=== PATIENT | female | born 1995 ===

== ENCOUNTER 2017-08-11 00:02 | Inpatient (IN) | payer MEDICAID ==
[2017-08-11] MEDS ORDERED: Sodium Chloride 0.9% 10 ML Syringe FLUSH PRN ×2 (02:22→02:23)
[2017-08-11] MEDS ORDERED: Ampicillin 2 GM in Sodium Chloride 0.9% 100 ML IV ONE ×2 (02:23→03:00)
--- NOTE | 2017-08-11 02:23 | PCM.LDHP ---
L&D History of Present Illness - General Date of Service: 08/11/17 Admit Problem/Dx: Patient Status Order with Admit Dx/Problem 08/11/17 00:53 Patient Status [ADT] Routine Admission Diagnosis/Problem Admission Diagnosis/Problem Source of Information: Patient History Limitations: Reports: No Limitations - History of Present Illness Introduction:: 21 y/o CLEMENTE 08/25/2017 [id number] [id number] presented to L&D c/o complaint of approximately half a cup of bloody discharge at noon and gush of approximately a half a cup to cup of fluid at 1600 hrs. GBS positive. Patient having contractions every 3-9 minutes. Cervix at 0-15 hours is 4 cm dilated 100% effaced soft mid position Vertex 0 station category 1 heart rates. Blood type A- elevated screen negative on 01/29/17 hemoglobin hematocrit 12.5/37.1 platelets 388,000 rubella immune serology nonreactive mixed imer on urine culture, negative hepatitis B surface antigen, negative HIV. Negative Chlamydia and gonorrhea probe. On 06/05/17 hemoglobin hematocrit 11.4/34.0 platelets 315,001 hour OB glucose screen apparently abnormal but 3 hour glucose tolerance test obtained with fasting of 76, 1 hour 150, two-hour 128, 3 hour 77 within normal limits. Group B strep positive as noted above. Patient will be placed in labor and delivery for an plan delivery. Fluid is clear. Location, : Reports: Abdomen Quality: Reports: Ache, Burning, Dull, Pressure Improves with: Reports: None Worsens with: Reports: None Associated Symptoms: Reports: N - Related Data Allergies/Adverse Reactions: Allergies Allergy/AdvReac Type Severity Reaction Status Date / Time No Known Allergies Allergy Verified 08/11/17 00:53 Social & Family History - Family History Cardiac: Reports: Hypertension Neurological: Reports: Other (See Below) (Father developed epilepsy at age 2.) Psychiatric: Reports: Depression (Paternal grandmother apparently had depression. Patient has history of posttraumatic stress disorder) Endocrine/Metabolic: Reports: Diabetes, type II (Father, paternal grandfather Terminal grandmother) Immunologic: Reports: Other (See Below) (Maternal grandmother has lupus) H&P Review of Systems - Review of Systems: Review Of Systems: See Below General: Reports: No Symptoms HEENT: Reports: No Symptoms Pulmonary: Reports: No Symptoms Cardiovascular: Reports: No Symptoms Gastrointestinal: Reports: No Symptoms Genitourinary: Reports: No Symptoms Musculoskeletal: Reports: No Symptoms Skin: Reports: No Symptoms Psychiatric: Reports: No Symptoms Neurological: Reports: No Symptoms Hematologic/Lymphatic: Reports: No Symptoms Immunologic: Reports: No Symptoms L&D Exam - Exam Exam: See Below - Vital Signs Vital Signs: Last Vital Signs Temp 98.0 F 08/11/17 00:38 Pulse 85 08/11/17 00:38 Resp 18 08/11/17 00:38 BP 119/72 08/11/17 00:38 Pulse Ox Weight: 181 lb - OB Specific Fundal Height In cm: 36 Contraction Duration (sec): 60 Contraction Frequency (min): 3 Contraction Intensity: Moderate Movement: Active Heart Tones: Present Heart Tones per Min: 130 Heart Rate (FHR) Variability: Moderate (6-25 bmp) Presentation: Vertex - Henderson Score Henderson Score Cervix Position: Midposition Henderson Score Consistency: Soft Henderson Score Effacement: >80% Henderson Score Dilation: 3-4 cm Henderson Score 's Station: -1 ,0 Henderson Score Total: 10 - Exam General: Alert, Oriented HEENT: Conjunctiva Clear, Mucosa Moist & [place] Neck: Supple, Trachea Midline Lungs: Clear to Auscultation, Normal Respiratory Effort Cardiovascular: Regular Rate, Regular Rhythm GI/Abdominal Exam: Normal Bowel Sounds, Soft, Non-Tender, No Organomegaly, No Distention, No Abnormal Bruit, No Mass, Pelvis Stable Genitourinary: Normal external exam, Normal bimanual exam, Normal speculum exam Back Exam: Normal Inspection, Full Range of Motion Extremities: Normal Inspection, Normal Range of Motion, Non-Tender, No Pedal Edema, Normal Capillary Refill Skin: Warm, Dry, Intact Neurological: Reflexes Equal Bilateral DTR: 2+: Bicep (L), Bicep (R), Patella (L), Patella (R) Psychiatric: Alert, Normal Affect, Normal Mood - Patient Data Lab Results Last 24 hrs: Laboratory Results - last 24 hr 08/11/17 Range/Units 00:50 Membrane Rupture Positive H - Problem List (1) 38 weeks gestation of SNOMED Code(s): 26746557 ICD Code: Z3A.38 - 38 WEEKS GESTATION OF Status: Acute Current Visit: Yes (2) GBS carrier SNOMED Code(s): 7218188781913 ICD Code: Z22.330 - CARRIER OF GROUP B STREPTOCOCCUS Status: Acute Current Visit: Yes Problem List Initiated/Reviewed/Updated: No Orders Last 24hrs: Active Orders 24 hr Category Date Time Status Patient Status [ADT] Routine ADT 08/11/17 00:53 Active Bedrest Bathroom Privileges [RC] ASDIRECTED Care 08/11/17 00:53 Active Non Stress Test [RC] PER UNIT ROUTINE Care 08/11/17 00:53 Active Vaginal Exam [RC] PRN Care 08/11/17 00:53 Active Vital Signs [RC] PER UNIT ROUTINE Care 08/11/17 00:53 Active Resuscitation Status Routine Resus Stat 08/11/17 00:53 Ordered Assessment/Plan Comment:: Plan labor and delivery.
[2017-08-11] MEDS ORDERED: Pneumococcal Polyvalent-23 Vaccine 0.5 ML SDV IM ONE ×2 (02:28→14:53)
[2017-08-11] MEDS ORDERED: Ampicillin 1 GM in Sodium Chloride 0.9% 100 ML IV SCH (02:30)
[2017-08-11] MEDS ORDERED: Lactated Ringers 1,000 ML IV SCH (02:30)
--- NOTE | 2017-08-11 03:01 | PCM.PREANE ---
Preanesthetic Assessment - Procedure Proposed Procedure: PHIL - Anesthesia/Transfusion/Family Hx Anesthesia History: Prior Anesthesia Without Reaction Family History of Anesthesia Reaction: No Transfusion History: No Prior Transfusion(s) Intubation History: Unknown - Review of Systems General: No Symptoms Pulmonary: No Symptoms Cardiovascular: No Symptoms Gastrointestinal: No Symptoms Neurological: No Symptoms Other: Reports: None - Physical Assessment NPO Status Date: 08/11/17 NPO Status Time: 00:15 Respiratory Rate: 18 Vital Signs: Last Vital Signs Temp 36.7 C 08/11/17 00:38 Pulse 85 08/11/17 00:38 Resp 18 08/11/17 00:38 BP 119/72 08/11/17 00:38 Pulse Ox Height: 1.57 m Weight: 82.1 kg ASA Class: 2 Mental Status: Alert & Oriented x3 Airway Class: Mallampati = 1 Dentition: Reports: Normal Dentition Thyro-Mental Finger Breadths: 3 Mouth Opening Finger Breadths: 3 ROM/Head Extension: Full Lungs: Clear to Auscultation, Normal Respiratory Effort Cardiovascular: Regular Rate, Regular Rhythm - Lab Values: Laboratory Last Values WBC 13.96 K/mm3 (3.98-10.04) H 08/11/17 02:35 RBC 4.14 M/mm3 (3.98-5.22) 08/11/17 02:35 Hgb 12.2 gm/L (11.2-15.7) 08/11/17 02:35 Hct 36.2 % (34.1-44.9) 08/11/17 02:35 MCV 87.4 fl (79.4-94.8) 08/11/17 02:35 MCH 29.5 pg (25.6-32.2) 08/11/17 02:35 MCHC 33.7 g/dl (32.2-35.5) 08/11/17 02:35 RDW Std Deviation 44.6 fL (36.4-46.3) 08/11/17 02:35 Plt Count 248 K/mm3 (182-369) 08/11/17 02:35 MPV 7.8 fl (9.4-12.3) L 08/11/17 02:35 Neut % (Auto) 68.8 % (34.0-71.1) 08/11/17 02:35 Lymph % (Auto) 22.2 % (19.3-51.7) 08/11/17 02:35 [place] % (Auto) 6.8 % (4.7-12.5) 08/11/17 02:35 Eos % (Auto) 0.9 (0.7-5.8) 08/11/17 02:35 Baso % (Auto) 0.1 % (0.1-1.2) 08/11/17 02:35 Neut # (Auto) 9.60 K/mm3 (1.56-6.13) H 08/11/17 02:35 Lymph # (Auto) 3.10 K/mm3 (1.18-3.74) 08/11/17 02:35 [place] # (Auto) 0.95 K/mm3 (0.24-0.36) H 08/11/17 02:35 Eos # (Auto) 0.12 K/mm3 (0.04-0.36) 08/11/17 02:35 Baso # (Auto) 0.02 K/mm3 (0.01-0.08) 08/11/17 02:35 Membrane Rupture Positive H 08/11/17 00:50 - Allergies Allergies/Adverse Reactions: Allergies Allergy/AdvReac Type Severity Reaction Status Date / Time No Known Allergies Allergy Verified 08/11/17 00:53 - Blood Blood Available: No Product(s) Available: None - Anesthesia Plan Pre-Op Medication Ordered: None - Acknowledgements Anesthesia Type Planned: Epidural Pt an Appropriate Candidate for the Planned Anesthesia: Yes Alternatives and Risks of Anesthesia Discussed w Pt/Guardian: Yes Pt/Guardian Understands and Agrees with Anesthesia Plan: Yes PreAnesthesia Questionnaire - SUBSTANCE USE Smoking Status *Q: Current Every Day Smoker (0.5ppd for 7 years) Tobacco Use Within Last Twelve Months: Cigarettes Second Hand Smoke Exposure: No Recreational Drug Use History: No - HOME MEDS Home Medications: Home Meds Cyclobenzaprine [Flexeril] 08/11/17 [History] Vits #93/Iron Fum/FA [ Formula Tablet] 08/11/17 [History] - CURRENT (IN HOUSE) MEDS Current Meds: Current Medications Ampicillin Sodium 2 gm/ Sodium (Chloride) 100 mls @ 200 mls/hr IV ONETIME ONE Stop: 08/11/17 02:52 Last Admin: 08/11/17 02:37 Dose: 200 mls/hr Ampicillin Sodium 1 gm/ Sodium (Chloride) 100 mls @ 200 mls/hr IV Q4H KT Lactated Ringer's (Ringers, Lactated) 1,000 mls @ 100 mls/hr IV ASDIRECTED KT Oxytocin 20 unit/ Lactated (Ringer's) 1,002 mls @ 6.01 mls/hr IV TITRATE KT; 2 MUNITS/MIN PRN Reason: Protocol Sodium Chloride (Saline Flush) 10 ml FLUSH ASDIRECTED PRN PRN Reason: Keep Vein Open Sodium Chloride (Saline Flush) 10 ml FLUSH ASDIRECTED PRN PRN Reason: Keep Vein Open Discontinued Medications Lactated Ringer's (Ringers, Lactated) 1,000 mls @ 100 mls/hr IV ASDIRECTED [facility] Pneumococcal Polyvalent Vaccine (Pneumovax 23) 0.5 ml IM .ONCE ONE Stop: 08/11/17 02:29
[2017-08-11] MEDS ORDERED: ePHEDrine 50 MG/ML SDV IVPUSH PRN (03:05)
[2017-08-11] MEDS ORDERED: fentaNYL 100 MCG/2 ML SDV EPIDUR PRN (03:05)
[2017-08-11] MEDS ORDERED: diphenhydrAMINE 50 MG/ML SDV IVPUSH PRN (03:05)
[2017-08-11] MEDS ORDERED: Ondansetron 4 MG/2 ML SDV IVPUSH PRN (03:05)
[2017-08-11] MEDS ORDERED: Bupivacaine/fentaNYL/NS 100 ML Bag EPIDUR SCH (03:15)
[2017-08-11] MEDS: Lactated Ringers 1,000 ML IV SCH ×3 (04:16→05:10)
[2017-08-11] MEDS: Ampicillin 1 GM in Sodium Chloride 0.9% 100 ML IV SCH ×2 (06:29→14:52)
--- NOTE | 2017-08-11 10:24 | PCM.SN ---
- Free Text/Narrative Note: Complete, plus 2 station.Cat I FHR.
[2017-08-11] MEDS ORDERED: Lidocaine 1% 50 ML MDV ONE (11:06)
--- NOTE | 2017-08-11 11:26 | PCM.DEL ---
L & D Note - General Info Date of Service: 08/11/17 Mother's Due Date: 08/25/17 - Delivery Note Labor: Spontaneous, Augmented by Oxytocin Delivery Outcome: Livebirth (Female liveborn Sunday08[birth year]11[birth year]17 at 1100 hrs. right occiput anterior under epidural anesthesia over midline episiotomy without laceration weight 2840 grams/6 pounds 4.2 ounces. Apgars 8/9) Delivery Method: Spontaneous Vaginal Delivery-Single Infant Delivery Mode: Spontaneous Presentation: Right Occiput Anterior (DOROTHY) Nuchal Cord: None Prep: Povidone-Iodine (Betadine Anesthesia Type: Epidural Amniotic Fluid Description: Clear Episiotomy Type: Midline Laceration: None Suture type: Other (Monocryl and was to) Suture size: 3-0 Placenta: Intact, Spontaneous (Velamentous insertion of the cord) Cord: 3 Vessels Estimated Blood Loss: 250 Resuscitation Needed: Yes : Suctioned, Bulb Syringe, Stimulated, Warmed, [place] Used, Warmer Used Provider: Ross [place] Score 1 min: 8 Score 5 min: 9 - Patient Data Vitals - Most Recent: Last Vital Signs Temp 98.0 F 08/11/17 00:38 Pulse 85 08/11/17 00:38 Resp 18 08/11/17 03:06 BP 119/72 08/11/17 00:38 Pulse Ox Weight - Most Recent: 181 lb I&O - Last 24 Hours: Intake & Output 08/10/17 08/11/17 08/11/17 22:59 06:59 14:59 Intake Total 2200 Balance 2200 Lab Results Last 24 Hours: Laboratory Results - last 24 hr 08/11/17 08/11/17 08/11/17 Range/Units 00:50 02:35 02:35 WBC 13.96 H (3.98-10.04) K/mm3 RBC 4.14 (3.98-5.22) M/mm3 Hgb 12.2 (11.2-15.7) gm/L Hct 36.2 (34.1-44.9) % MCV 87.4 (79.4-94.8) fl MCH 29.5 (25.6-32.2) pg MCHC 33.7 (32.2-35.5) g/dl RDW Std Deviation 44.6 (36.4-46.3) fL Plt Count 248 (182-369) K/mm3 MPV 7.8 L (9.4-12.3) fl Neut % (Auto) 68.8 (34.0-71.1) % Lymph % (Auto) 22.2 (19.3-51.7) % [place] % (Auto) 6.8 (4.7-12.5) % Eos % (Auto) 0.9 (0.7-5.8) Baso % (Auto) 0.1 (0.1-1.2) % Neut # (Auto) 9.60 H (1.56-6.13) K/mm3 Lymph # (Auto) 3.10 (1.18-3.74) K/mm3 [place] # (Auto) 0.95 H (0.24-0.36) K/mm3 Eos # (Auto) 0.12 (0.04-0.36) K/mm3 Baso # (Auto) 0.02 (0.01-0.08) K/mm3 Manual Slide Review Abnormal smear Membrane Rupture Positive H Blood Type A NEGATIVE Gel Antibody Screen Negative Med Orders - Current: Current Medications Diphenhydramine HCl (Benadryl) 25 mg IVPUSH Q6H PRN PRN Reason: Pruritis Ephedrine Sulfate (Ephedrine Sulfate) 5 mg IVPUSH ASDIRECTED PRN PRN Reason: Hypotension Fentanyl (Sublimaze) 100 mcg EPIDUR Q3H PRN PRN Reason: Pain Last Admin: 08/11/17 04:41 Dose: 100 mcg Fentanyl/Bupivacaine HCl (Fentanyl/Bupivacaine/Ns 2 Mcg-0.125% 100 Ml) 100 ml EPIDUR ASDIRECTED KT Last Admin: 08/11/17 04:42 Dose: 100 ml Ampicillin Sodium 1 gm/ Sodium (Chloride) 100 mls @ 200 mls/hr IV Q4H KT Last Admin: 08/11/17 06:29 Dose: 200 mls/hr Lactated Ringer's (Ringers, Lactated) 1,000 mls @ 100 mls/hr IV ASDIRECTED KT Last Admin: 08/11/17 05:10 Dose: 100 mls/hr Oxytocin 20 unit/ Lactated (Ringer's) 1,002 mls @ 6.01 mls/hr IV TITRATE KT; 2 MUNITS/MIN PRN Reason: Protocol Ondansetron HCl (Zofran) 4 mg IVPUSH ONETIME PRN PRN Reason: Nausea/Vomiting Sodium Chloride (Saline Flush) 10 ml FLUSH ASDIRECTED PRN PRN Reason: Keep Vein Open Sodium Chloride (Saline Flush) 10 ml FLUSH ASDIRECTED PRN PRN Reason: Keep Vein Open Discontinued Medications Ampicillin Sodium 2 gm/ Sodium (Chloride) 100 mls @ 200 mls/hr IV ONETIME ONE Stop: 08/11/17 02:52 Last Admin: 08/11/17 02:37 Dose: 200 mls/hr Lactated Ringer's (Ringers, Lactated) 1,000 mls @ 100 mls/hr IV ASDIRECTED KT Lidocaine HCl (Xylocaine 1%) Confirm Administered Dose 50 ml .ROUTE .STK-MED ONE Stop: 08/11/17 11:07 Pneumococcal Polyvalent Vaccine (Pneumovax 23) 0.5 ml IM .ONCE ONE Stop: 08/11/17 02:29 - Problem List & Annotations (1) 38 weeks gestation of SNOMED Code(s): 09863897 Code(s): Z3A.38 - 38 WEEKS GESTATION OF Status: Acute Current Visit: Yes (2) GBS carrier SNOMED Code(s): 0059217402160 Code(s): Z22.330 - CARRIER OF GROUP B STREPTOCOCCUS Status: Acute Current Visit: Yes (3) Encounter for full-term uncomplicated delivery SNOMED Code(s): 83631962 Code(s): O80 - ENCOUNTER FOR FULL-TERM UNCOMPLICATED DELIVERY Status: Acute Current Visit: Yes (4) Velamentous insertion of umbilical cord SNOMED Code(s): 80560896 Code(s): O43.129 - VELAMENTOUS INSERTION OF UMBILICAL CORD, UNSP TRIMESTER Status: Acute Current Visit: Yes Qualifiers: Trimester: third trimester Qualified Code(s): O43.123 - Velamentous insertion of umbilical cord, third trimester - Problem List Review Problem List Initiated/Reviewed/Updated: No - My Orders Last 24 Hours: My Active Orders 08/11/17 00:53 Vaginal Exam [RC] PRN Vital Signs [RC] PER UNIT ROUTINE Resuscitation Status Routine 08/11/17 02:22 Communication Order [RC] ASDIRECTED Notify Provider [RC] PFP Notify Provider [RC] PRN Peripheral IV Care [RC] . DIRECTED Urinary Catheter Assessment [RC] ASDIRECTED Sodium Chloride 0.9% [Saline Flush] 10 ml FLUSH ASDIRECTED PRN 08/11/17 02:23 Patient Status [ADT] Routine Activity as Tolerated [RC] PFP Communication Order [RC] ASDIRECTED Heart Tones [RC] ASDIRECTED Notify Provider [RC] PFP Notify Provider [RC] PRN Peripheral IV Care [RC] . DIRECTED Sodium Chloride 0.9% [Saline Flush] 10 ml FLUSH ASDIRECTED PRN Electronic Heart Tones Ext w TOCO [WOMSER] Routine Electronic Heart Tones Internal [WOMSER] Per Unit Routine Peripheral IV Insertion Adult [OM.PC] Routine 08/11/17 02:24 Pump Management, Intrathecal [RC] ASDIRECTED 08/11/17 02:30 Lactated Ringers [Ringers, Lactated] 1,000 ml IV ASDIRECTED Oxytocin [Pitocin] 20 unit Lactated Ringers [Ringers, Lactated] 1,000 ml IV TITRATE 08/11/17 07:00 Ampicillin 1 gm Sodium Chloride 0.9% [Normal Saline] 100 ml IV Q4H 08/11/17 Breakfast Clear Liquid Diet [DIET] - Plan Plan:: Plan labor and delivery.
[2017-08-11] MEDS ORDERED: Witch Hazel Medicated Pads 100/Jar TOP PRN (12:27)
[2017-08-11] MEDS ORDERED: Benzocaine/Menthol 20%-0.5% Spray 56 GM Canister TOP PRN (12:27)
[2017-08-11] MEDS ORDERED: Lanolin 100% Cream 7 GM Tube TOP PRN (12:27)
[2017-08-11] MEDS ORDERED: Acetaminophen 325 MG Tab PO PRN (12:27)
[2017-08-11] MEDS ORDERED: Ibuprofen 600 MG Tab PO PRN (12:27)
[2017-08-11] MEDS ORDERED: Docusate Sodium 100 MG Cap PO PRN (12:27)
--- NOTE | 2017-08-11 17:46 | PCM48HPAN ---
Post Anesthesia Note - EVALUATION WITHIN 48HRS OF ANESTHETIC Vital Signs in Normal Range: Yes Patient Participated in Evaluation: Yes Respiratory Function Stable: Yes Airway Patent: Yes Cardiovascular Function Stable: Yes Hydration Status Stable: Yes Pain Control Satisfactory: Yes Nausea and Vomiting Control Satisfactory: Yes Mental Status Recovered: Yes Pulse Rate: 73 Resp Rate: 17 Temperature: 36.7 C Blood Pressure: 99/54 - COMMENTS/OBSERVATIONS Free Text/Narrative:: No anesthesia complications indicated
[2017-08-11] MEDS ORDERED: Bupivacaine 0.25% 10 ML SDV ONE (22:22)
--- NOTE | 2017-08-12 10:30 | PCM.DCSUM1 ---
Discharge Summary - Hospital Course Free Text/Narrative:: [facility] LIVE L/D Delivery Note Patient Name: RENO PENA Date of : 89 Patient Status: Inpatient Attending Provider: Ross Houston Date: 08/11/17 11:21 Initialization Date: 08/11/17 11:21 L & D Note - General Info Date of Service: 08/11/17 Mother's Due Date: 08/25/17 - Delivery Note Labor: Spontaneous, Augmented by Oxytocin Delivery Outcome: Livebirth (Female liveborn Sunday08/11/17 at 1100 hrs. right occiput anterior under epidural anesthesia over midline episiotomy without laceration weight 2840 grams/6 pounds 4.2 ounces. Apgars 8/9) Delivery Method: Spontaneous Vaginal Delivery-Single Delivery Mode: Spontaneous Presentation: Right Occiput Anterior (DOROTHY) Nuchal Cord: None Prep: Povidone-Iodine (Betadine Anesthesia Type: Epidural Amniotic Fluid Description: Clear Episiotomy Type: Midline Laceration: None Suture type: Other (Monocryl and was to) Suture size: 3-0 Placenta: Intact, Spontaneous (Velamentous insertion of the cord) Cord: 3 Vessels Estimated Blood Loss: 250 Resuscitation Needed: Yes Jeffers: Suctioned, Bulb Syringe, Stimulated, Warmed, [place] Used, Warmer Used Provider: Ross Houston Score 1 min: 8 Score 5 min: 9 - Patient Data Vitals - Most Recent: Last Vital Signs Temp 98.0 F 08/11/17 00:38 Pulse 85 08/11/17 00:38 Resp 18 08/11/17 03:06 BP 119/72 08/11/17 00:38 Pulse Ox Weight - Most Recent: 181 lb I&O - Last 24 Hours: Intake & Output 08/10/17 08/11/17 08/11/17 22:59 06:59 14:59 Intake Total 2200 Balance 2200 Lab Results Last 24 Hours: Laboratory Results - last 24 hr 08/11/17 08/11/17 08/11/17 Range/Units 00:50 02:35 02:35 WBC 13.96 H (3.98-10.04) K/mm3 RBC 4.14 (3.98-5.22) M/mm3 Hgb 12.2 (11.2-15.7) gm/L Hct 36.2 (34.1-44.9) % MCV 87.4 (79.4-94.8) fl MCH 29.5 (25.6-32.2) pg MCHC 33.7 (32.2-35.5) g/dl RDW Std Deviation 44.6 (36.4-46.3) fL Plt Count 248 (182-369) K/mm3 MPV 7.8 L (9.4-12.3) fl Neut % (Auto) 68.8 (34.0-71.1) % Lymph % (Auto) 22.2 (19.3-51.7) % Coos % (Auto) 6.8 (4.7-12.5) % Eos % (Auto) 0.9 (0.7-5.8) Baso % (Auto) 0.1 (0.1-1.2) % Neut # (Auto) 9.60 H (1.56-6.13) K/mm3 Lymph # (Auto) 3.10 (1.18-3.74) K/mm3 Coos # (Auto) 0.95 H (0.24-0.36) K/mm3 Eos # (Auto) 0.12 (0.04-0.36) K/mm3 Baso # (Auto) 0.02 (0.01-0.08) K/mm3 Manual Slide Review Abnormal smear Membrane Rupture Positive H Blood Type A NEGATIVE Gel Antibody Screen Negative Med Orders - Current: Current Medications Diphenhydramine HCl (Benadryl) 25 mg IVPUSH Q6H PRN PRN Reason: Pruritis Ephedrine Sulfate (Ephedrine Sulfate) 5 mg IVPUSH ASDIRECTED PRN PRN Reason: Hypotension Fentanyl (Sublimaze) 100 mcg EPIDUR Q3H PRN PRN Reason: Pain Last Admin: 08/11/17 04:41 Dose: 100 mcg Fentanyl/Bupivacaine HCl (Fentanyl/Bupivacaine/Ns 2 Mcg-0.125% 100 Ml) 100 ml EPIDUR ASDIRECTED KT Last Admin: 08/11/17 04:42 Dose: 100 ml Ampicillin Sodium 1 gm/ Sodium (Chloride) 100 mls @ 200 mls/hr IV Q4H KT Last Admin: 08/11/17 06:29 Dose: 200 mls/hr Lactated Ringer's (Ringers, Lactated) 1,000 mls @ 100 mls/hr IV ASDIRECTED KT Last Admin: 08/11/17 05:10 Dose: 100 mls/hr Oxytocin 20 unit/ Lactated (Ringer's) 1,002 mls @ 6.01 mls/hr IV TITRATE KT; 2 MUNITS/MIN PRN Reason: Protocol Ondansetron HCl (Zofran) 4 mg IVPUSH ONETIME PRN PRN Reason: Nausea/Vomiting Sodium Chloride (Saline Flush) 10 ml FLUSH ASDIRECTED PRN PRN Reason: Keep Vein Open Sodium Chloride (Saline Flush) 10 ml FLUSH ASDIRECTED PRN PRN Reason: Keep Vein Open Discontinued Medications Ampicillin Sodium 2 gm/ Sodium (Chloride) 100 mls @ 200 mls/hr IV ONETIME ONE Stop: 08/11/17 02:52 Last Admin: 08/11/17 02:37 Dose: 200 mls/hr Lactated Ringer's (Ringers, Lactated) 1,000 mls @ 100 mls/hr IV ASDIRECTED [facility] Lidocaine HCl (Xylocaine 1%) Confirm Administered Dose 50 ml .ROUTE .STK-MED ONE Stop: 08/11/17 11:07 Pneumococcal Polyvalent Vaccine (Pneumovax 23) 0.5 ml IM .ONCE ONE Stop: 08/11/17 02:29 - Problem List & Annotations (1) 38 weeks gestation of SNOMED Code(s): 24069417 Code(s): Z3A.38 - 38 WEEKS GESTATION OF Status: Acute Current Visit: Yes (2) GBS carrier SNOMED Code(s): 6421710696137 Code(s): Z22.330 - CARRIER OF GROUP B STREPTOCOCCUS Status: Acute Current Visit: Yes (3) Encounter for full-term uncomplicated delivery SNOMED Code(s): 13029915 Code(s): O80 - ENCOUNTER FOR FULL-TERM UNCOMPLICATED DELIVERY Status: Acute Current Visit: Yes (4) Velamentous insertion of umbilical cord SNOMED Code(s): 56669851 Code(s): O43.129 - VELAMENTOUS INSERTION OF UMBILICAL CORD, UNSP TRIMESTER Status: Acute Current Visit: Yes Qualifiers: Trimester: third trimester Qualified Code(s): O43.123 - Velamentous insertion of umbilical cord, third trimester - Problem List Review Problem List Initiated/Reviewed/Updated: No - My Orders Last 24 Hours: My Active Orders 08/11/17 00:53 Vaginal Exam [RC] PRN Vital Signs [RC] PER UNIT ROUTINE Resuscitation Status Routine 08/11/17 02:22 Communication Order [RC] ASDIRECTED Notify Provider [RC] PFP Notify Provider [RC] PRN Peripheral IV Care [RC] . DIRECTED Urinary Catheter Assessment [RC] ASDIRECTED Sodium Chloride 0.9% [Saline Flush] 10 ml FLUSH ASDIRECTED PRN 08/11/17 02:23 Patient Status [ADT] Routine Activity as Tolerated [RC] PFP Communication Order [RC] ASDIRECTED Heart Tones [RC] ASDIRECTED Notify Provider [RC] PFP Notify Provider [RC] PRN Peripheral IV Care [RC] . DIRECTED Sodium Chloride 0.9% [Saline Flush] 10 ml FLUSH ASDIRECTED PRN Electronic Heart Tones Ext w TOCO [WOMSER] Routine Electronic Heart Tones Internal [WOMSER] Per Unit Routine Peripheral IV Insertion Adult [OM.PC] Routine 08/11/17 02:24 Pump Management, Intrathecal [RC] ASDIRECTED 08/11/17 02:30 Lactated Ringers [Ringers, Lactated] 1,000 ml IV ASDIRECTED Oxytocin [Pitocin] 20 unit Lactated Ringers [Ringers, Lactated] 1,000 ml IV TITRATE 08/11/17 07:00 Ampicillin 1 gm Sodium Chloride 0.9% [Normal Saline] 100 ml IV Q4H 08/11/17 Breakfast Clear Liquid Diet [DIET] - Plan Plan:: Plan labor and delivery. HPI Initial Comments: [facility] LIVE L/D Delivery Note Patient Name: RENO PENA Date of : 89 Patient Status: Inpatient Attending Provider: Ross Houston Date: 08/11/17 11:21 Initialization Date: 08/11/17 11:21 L & D Note - General Info Date of Service: 08/11/17 Mother's Due Date: 08/25/17 - Delivery Note Labor: Spontaneous, Augmented by Oxytocin Delivery Outcome: Livebirth (Female liveborn Sunday08/11/17 at 1100 hrs. right occiput anterior under epidural anesthesia over midline episiotomy without laceration weight 2840 grams/6 pounds 4.2 ounces. Apgars 8/9) Infant Delivery Method: Spontaneous Vaginal Delivery-Single Delivery Mode: Spontaneous Presentation: Right Occiput Anterior (DOROTHY) Nuchal Cord: None Prep: Povidone-Iodine (Betadine Anesthesia Type: Epidural Amniotic Fluid Description: Clear Episiotomy Type: Midline Laceration: None Suture type: Other (Monocryl and was to) Suture size: 3-0 Placenta: Intact, Spontaneous (Velamentous insertion of the cord) Cord: 3 Vessels Estimated Blood Loss: 250 Resuscitation Needed: Yes Jeffers: Suctioned, Bulb Syringe, Stimulated, Warmed, [place] Used, Warmer Used Provider: Ross Houston Score 1 min: 8 Score 5 min: 9 - Patient Data Vitals - Most Recent: Last Vital Signs Temp 98.0 F 08/11/17 00:38 Pulse 85 08/11/17 00:38 Resp 18 08/11/17 03:06 BP 119/72 08/11/17 00:38 Pulse Ox Weight - Most Recent: 181 lb I&O - Last 24 Hours: Intake & Output 08/10/17 08/11/17 08/11/17 22:59 06:59 14:59 Intake Total 2200 Balance 2200 Lab Results Last 24 Hours: Laboratory Results - last 24 hr 08/11/17 08/11/17 08/11/17 Range/Units 00:50 02:35 02:35 WBC 13.96 H (3.98-10.04) K/mm3 RBC 4.14 (3.98-5.22) M/mm3 Hgb 12.2 (11.2-15.7) gm/L Hct 36.2 (34.1-44.9) % MCV 87.4 (79.4-94.8) fl MCH 29.5 (25.6-32.2) pg MCHC 33.7 (32.2-35.5) g/dl RDW Std Deviation 44.6 (36.4-46.3) fL Plt Count 248 (182-369) K/mm3 MPV 7.8 L (9.4-12.3) fl Neut % (Auto) 68.8 (34.0-71.1) % Lymph % (Auto) 22.2 (19.3-51.7) % Coos % (Auto) 6.8 (4.7-12.5) % Eos % (Auto) 0.9 (0.7-5.8) Baso % (Auto) 0.1 (0.1-1.2) % Neut # (Auto) 9.60 H (1.56-6.13) K/mm3 Lymph # (Auto) 3.10 (1.18-3.74) K/mm3 Coos # (Auto) 0.95 H (0.24-0.36) K/mm3 Eos # (Auto) 0.12 (0.04-0.36) K/mm3 Baso # (Auto) 0.02 (0.01-0.08) K/mm3 Manual Slide Review Abnormal smear Membrane Rupture Positive H Blood Type A NEGATIVE Gel Antibody Screen Negative Med Orders - Current: Current Medications Diphenhydramine HCl (Benadryl) 25 mg IVPUSH Q6H PRN PRN Reason: Pruritis Ephedrine Sulfate (Ephedrine Sulfate) 5 mg IVPUSH ASDIRECTED PRN PRN Reason: Hypotension Fentanyl (Sublimaze) 100 mcg EPIDUR Q3H PRN PRN Reason: Pain Last Admin: 08/11/17 04:41 Dose: 100 mcg Fentanyl/Bupivacaine HCl (Fentanyl/Bupivacaine/Ns 2 Mcg-0.125% 100 Ml) 100 ml EPIDUR ASDIRECTED KT Last Admin: 08/11/17 04:42 Dose: 100 ml Ampicillin Sodium 1 gm/ Sodium (Chloride) 100 mls @ 200 mls/hr IV Q4H KT Last Admin: 08/11/17 06:29 Dose: 200 mls/hr Lactated Ringer's (Ringers, Lactated) 1,000 mls @ 100 mls/hr IV ASDIRECTED KT Last Admin: 08/11/17 05:10 Dose: 100 mls/hr Oxytocin 20 unit/ Lactated (Ringer's) 1,002 mls @ 6.01 mls/hr IV TITRATE KT; 2 MUNITS/MIN PRN Reason: Protocol Ondansetron HCl (Zofran) 4 mg IVPUSH ONETIME PRN PRN Reason: Nausea/Vomiting Sodium Chloride (Saline Flush) 10 ml FLUSH ASDIRECTED PRN PRN Reason: Keep Vein Open Sodium Chloride (Saline Flush) 10 ml FLUSH ASDIRECTED PRN PRN Reason: Keep Vein Open Discontinued Medications Ampicillin Sodium 2 gm/ Sodium (Chloride) 100 mls @ 200 mls/hr IV ONETIME ONE Stop: 08/11/17 02:52 Last Admin: 08/11/17 02:37 Dose: 200 mls/hr Lactated Ringer's (Ringers, Lactated) 1,000 mls @ 100 mls/hr IV ASDIRECTED KT Lidocaine HCl (Xylocaine 1%) Confirm Administered Dose 50 ml .ROUTE .STK-MED ONE Stop: 08/11/17 11:07 Pneumococcal Polyvalent Vaccine (Pneumovax 23) 0.5 ml IM .ONCE ONE Stop: 08/11/17 02:29 - Problem List & Annotations (1) 38 weeks gestation of SNOMED Code(s): 30785066 Code(s): Z3A.38 - 38 WEEKS GESTATION OF Status: Acute Current Visit: Yes (2) GBS carrier SNOMED Code(s): 4861088148949 Code(s): Z22.330 - CARRIER OF GROUP B STREPTOCOCCUS Status: Acute Current Visit: Yes (3) Encounter for full-term uncomplicated delivery SNOMED Code(s): 72669076 Code(s): O80 - ENCOUNTER FOR FULL-TERM UNCOMPLICATED DELIVERY Status: Acute Current Visit: Yes (4) Velamentous insertion of umbilical cord SNOMED Code(s): 23892499 Code(s): O43.129 - VELAMENTOUS INSERTION OF UMBILICAL CORD, UNSP TRIMESTER Status: Acute Current Visit: Yes Qualifiers: Trimester: third trimester Qualified Code(s): O43.123 - Velamentous insertion of umbilical cord, third trimester - Problem List Review Problem List Initiated/Reviewed/Updated: No - My Orders Last 24 Hours: My Active Orders 08/11/17 00:53 Vaginal Exam [RC] PRN Vital Signs [RC] PER UNIT ROUTINE Resuscitation Status Routine 08/11/17 02:22 Communication Order [RC] ASDIRECTED Notify Provider [RC] PFP Notify Provider [RC] PRN Peripheral IV Care [RC] . DIRECTED Urinary Catheter Assessment [RC] ASDIRECTED Sodium Chloride 0.9% [Saline Flush] 10 ml FLUSH ASDIRECTED PRN 08/11/17 02:23 Patient Status [ADT] Routine Activity as Tolerated [RC] PFP Communication Order [RC] ASDIRECTED Heart Tones [RC] ASDIRECTED Notify Provider [RC] PFP Notify Provider [RC] PRN Peripheral IV Care [RC] . DIRECTED Sodium Chloride 0.9% [Saline Flush] 10 ml FLUSH ASDIRECTED PRN Electronic Heart Tones Ext w TOCO [WOMSER] Routine Electronic Heart Tones Internal [WOMSER] Per Unit Routine Peripheral IV Insertion Adult [OM.PC] Routine 08/11/17 02:24 Pump Management, Intrathecal [RC] ASDIRECTED 08/11/17 02:30 Lactated Ringers [Ringers, Lactated] 1,000 ml IV ASDIRECTED Oxytocin [Pitocin] 20 unit Lactated Ringers [Ringers, Lactated] 1,000 ml IV TITRATE 08/11/17 07:00 Ampicillin 1 gm Sodium Chloride 0.9% [Normal Saline] 100 ml IV Q4H 08/11/17 Breakfast Clear Liquid Diet [DIET] - Plan Plan:: Plan labor and delivery. Brief History: [facility] LIVE . L/D Delivery Note. Patient Name: RENO PENAIAedical Record Number: [id number]. Date of : Patient Status: Inpatient. Attending Provider: Ross Houston Number: [id number]. Date: 08/11/17 11:21Initialization Date: 08/11/17 11:21. L & D Note. - General Info. Date of Service: 08/11/17. Mother's Due Date: 08/25/17. - Delivery Note. Labor: Spontaneous, Augmented by Oxytocin. Delivery Outcome: Livebirth (Female liveborn Sunday08/11/17 at 1100 hrs. right occiput anterior under epidural anesthesia over midline episiotomy without laceration weight 2840 grams/6 pounds 4.2 ounces. Apgars 8/9). Delivery Method: Spontaneous Vaginal Delivery-Single. Delivery Mode: Spontaneous. Presentation: Right Occiput Anterior (DOROTHY). Nuchal Cord: None. Prep: Povidone-Iodine (Betadine. Anesthesia Type: Epidural. Amniotic Fluid Description: Clear. Episiotomy Type: Midline. Laceration: None. Suture type: Other (Monocryl and was to). Suture size: 3-0. Placenta: Intact, Spontaneous (Velamentous insertion of the cord). Cord: 3 Vessels. Estimated Blood Loss: 250. Resuscitation Needed: Yes. : Suctioned, Bulb Syringe, Stimulated, Warmed, [place] Used, Warmer Used. Provider: Ross Houston. Score 1 min: 8. Score 5 min: 9. - Patient Data. Vitals - Most Recent: Last Vital Signs. Temp 98.0 F 08/11/17 00:38. Pulse 85 08/11/17 00:38. Resp 18 08/11/17 03:06. BP 119/72 08/11/17 00:38. Pulse Ox. Weight - Most Recent: 181 lb. I&O - Last 24 Hours: Intake & Output. 08/10/180203/1803. 22:5906:5914:59. Intake [id number]. [id number]. Lab Results Last 24 Hours: Laboratory Results - last 24 hr. Range/Units. 00:5002:3502:35. WBC 13.96 H (3.98-10.04) K /mm3. RBC 4.14 (3.98-5.22) M/mm3. Hgb 12.2 (11.2-15.7) gm/L. Hct 36.2 (34.1 -44.9) %. MCV 87.4 (79.4-94.8) fl. MCH 29.5 (25.6-32.2) pg. MCHC 33.7 ( 32.2-35.5) g/dl. RDW Std Deviation 44.6 (36.4-46.3) fL. Plt Count 248 (182- 369) K/mm3. MPV 7.8 L (9.4-12.3) fl. Neut % (Auto) 68.8 (34.0-71.1) %. Lymph % (Auto) 22.2 (19.3-51.7) %. Coos % (Auto) 6.8 (4.7-12.5) %. Eos % ( Auto) 0.9 (0.7-5.8). Baso % (Auto) 0.1 (0.1-1.2) %. Neut # (Auto) 9.60 H ( 1.56-6.13) K/mm3. Lymph # (Auto) 3.10 (1.18-3.74) K/mm3. [place]os # (Auto) 0.95 H (0.24-0.36) K/mm3. Eos # (Auto) 0.12 (0.04-0.36) K/mm3. Baso # (Auto) 0.02 (0.01-0.08) K/mm3. Manual Slide Review Abnormal smear. Membrane Rupture Positive H. Blood Type A NEGATIVE. Gel Antibody Screen Negative. Med Orders - Current: Current Medications. Diphenhydramine HCl (Benadryl) 25 mg IVPUSH Q6H PRN. PRN Reason: Pruritis. Ephedrine Sulfate (Ephedrine Sulfate) 5 mg IVPUSH ASDIRECTED PRN. PRN Reason: Hypotension. Fentanyl (Sublimaze) 100 mcg EPIDUR Q3H PRN. PRN Reason: Pain. Last Admin: 08/11/17 04:41 Dose: 100 mcg. Fentanyl/Bupivacaine HCl (Fentanyl/Bupivacaine/Ns 2 Mcg-0.125% 100 Ml ) 100 ml EPIDUR ASDIRECTED KT. Last Admin: 08/11/17 04:42 Dose: 100 ml. Ampicillin Sodium 1 gm/ Sodium (Chloride) 100 mls @ 200 mls/hr IV Q4H KT. Last Admin: 08/11/17 06:29 Dose: 200 mls/hr. Lactated Ringer's (Ringers, Lactated) 1,000 mls @ 100 mls/hr IV ASDIRECTED KT. Last Admin: 08/11/17 05: 10 Dose: 100 mls/hr. Oxytocin 20 unit/ Lactated (Ringer's) 1,002 mls @ 6.01 mls/hr IV TITRATE KT; 2 MUNITS/MIN. PRN Reason: Protocol. Ondansetron HCl ( Zofran) 4 mg IVPUSH ONETIME PRN. PRN Reason: Nausea/Vomiting. Sodium Chloride (Saline Flush) 10 ml FLUSH ASDIRECTED PRN. PRN Reason: Keep Vein Open. Sodium Chloride (Saline Flush) 10 ml FLUSH ASDIRECTED PRN. PRN Reason: Keep Vein Open. Discontinued Medications. Ampicillin Sodium 2 gm/ Sodium ( Chloride) 100 mls @ 200 mls/hr IV ONETIME ONE. Stop: 08/11/17 02:52. Last Admin: 08/11/17 02:37 Dose: 200 mls/hr. Lactated Ringer's (Ringers, Lactated) 1,000 mls @ 100 mls/hr IV ASDIRECTED KT. Lidocaine HCl (Xylocaine 1%) Confirm Administered Dose 50 ml .ROUTE .STK-MED ONE. Stop: 08/11/17 11:07. Pneumococcal Polyvalent Vaccine (Pneumovax 23) 0.5 ml IM .ONCE ONE. Stop: 03/21 02:29. - Problem List & Annotations. (1) 38 weeks gestation of . SNOMED Code(s): 89013693. Code(s): Z3A.38 - 38 WEEKS GESTATION OF Status: Acute Current Visit: Yes. (2) GBS carrier. SNOMED Code(s ): 6119261939684. Code(s): Z22.330 - CARRIER OF GROUP B STREPTOCOCCUS Status : Acute Current Visit: Yes. (3) Encounter for full-term uncomplicated delivery. SNOMED Code(s): 87331546. Code(s): O80 - ENCOUNTER FOR FULL-TERM UNCOMPLICATED DELIVERY Status: Acute Current Visit: Yes. (4) Velamentous insertion of umbilical cord. SNOMED Code(s): 75588993. Code(s): O43.129 - VELAMENTOUS INSERTION OF UMBILICAL CORD, UNSP TRIMESTER Status: Acute Current Visit: Yes. Qualifiers: Trimester: third trimester Qualified Code(s) : O43.123 - Velamentous insertion of umbilical cord, third trimester. - Problem List Review. Problem List Initiated/Reviewed/Updated: No. - My Orders. Last 24 Hours: My Active Orders. 08/11/17 00:53. Vaginal Exam [RC] PRN. Vital Signs [RC] PER UNIT ROUTINE. Resuscitation Status Routine. 02:22. Communication Order [RC] ASDIRECTED. Notify Provider [RC] PFP. Notify Provider [RC] PRN. Peripheral IV Care [RC] . DIRECTED. Urinary Catheter Assessment [RC] ASDIRECTED. Sodium Chloride 0.9% [Saline Flush] 10 ml FLUSH ASDIRECTED PRN. 08/11/17 02:23. Patient Status [ADT] Routine. Activity as Tolerated [RC] PFP. Communication Order [RC] ASDIRECTED. Heart Tones [RC] ASDIRECTED. Notify Provider [RC] PFP. Notify Provider [RC] PRN. Peripheral IV Care [RC] . DIRECTED. Sodium Chloride 0.9% [Saline Flush ] 10 ml FLUSH ASDIRECTED PRN. Electronic Heart Tones Ext w TOCO [WOMSER ] Routine. Electronic Heart Tones Internal [WOMSER] Per Unit Routine. Peripheral IV Insertion Adult [OM.PC] Routine. 08/11/17 02:24. Pump Management , Intrathecal [RC] ASDIRECTED. 08/11/17 02:30. Lactated Ringers [Ringers, Lactated] 1,000 ml IV ASDIRECTED. Oxytocin [Pitocin] 20 unit Lactated Ringers [Ringers, Lactated] 1,000 ml IV TITRATE. 08/11/17 07:00. Ampicillin 1 gm Sodium Chloride 0.9% [Normal Saline] 100 ml IV Q4H. 08/11/17 Breakfast. Clear Liquid Diet [DIET]. - Plan. Plan:: Plan labor and delivery. - Discharge Data Discharge Date: 08/12/17 Discharge Disposition: Home, Self-Care 01 Condition: Good - Discharge Diagnosis/Problem(s) (1) 38 weeks gestation of SNOMED Code(s): 23344408 ICD Code: Z3A.38 - 38 WEEKS GESTATION OF Status: Acute Current Visit: Yes (2) GBS carrier SNOMED Code(s): 8677743419418 ICD Code: Z22.330 - CARRIER OF GROUP B STREPTOCOCCUS Status: Acute Current Visit: Yes (3) Encounter for full-term uncomplicated delivery SNOMED Code(s): 76185218 ICD Code: O80 - ENCOUNTER FOR FULL-TERM UNCOMPLICATED DELIVERY Status: Acute Current Visit: Yes (4) Velamentous insertion of umbilical cord SNOMED Code(s): 20882854 ICD Code: O43.129 - VELAMENTOUS INSERTION OF UMBILICAL CORD, UNSP TRIMESTER Status: Acute Current Visit: Yes Qualifiers: Trimester: third trimester Qualified Code(s): O43.123 - Velamentous insertion of umbilical cord, third trimester - Patient Summary/Data Complications: : None Consults: None Hospital Course: Uneventful - Patient Instructions Diet: Regular Diet as Tolerated Driving: Do Not Drive (48 hours) Showering/Bathing: May Shower Notify Provider of: Fever, Increased Pain, Swelling and Redness, Drainage, Nausea and/or Vomiting - Discharge Plan Home Medications: Home Meds Cyclobenzaprine [Flexeril] 08/11/17 [History] Vits #93/Iron Fum/FA [ Formula Tablet] 08/11/17 [History] Referrals: Stella Ford, [employer]GRAMMER [Nurse Practitioner] - (2 weeks) - Discharge Summary/Plan Comment DC Time >30 min.: No - Patient Data Vitals - Most Recent: Last Vital Signs Temp 98.4 F 08/12/17 04:38 Pulse 67 08/12/17 04:38 Resp 16 08/12/17 04:38 BP 109/54 L 08/12/17 04:38 Pulse Ox 100 08/12/17 04:38 Weight - Most Recent: 181 lb I&O - Last 24 hours: Intake & Output 08/11/17 08/12/17 08/12/17 21:59 06:59 14:59 Intake Total Balance Lab Results - Last 24 hrs: Laboratory Results - last 24 hr 08/11/17 08/12/17 Range/Units 18:12 07:00 WBC 12.29 H (3.98-10.04) K/mm3 RBC 3.36 L (3.98-5.22) M/mm3 Hgb 9.7 L (11.2-15.7) gm/L Hct 30.0 L (34.1-44.9) % MCV 89.3 (79.4-94.8) fl MCH 28.9 (25.6-32.2) pg MCHC 32.3 (32.2-35.5) g/dl RDW Std Deviation 45.5 (36.4-46.3) fL Plt Count 199 (182-369) K/mm3 MPV 7.9 L (9.4-12.3) fl Neut % (Auto) 60.8 (34.0-71.1) % Lymph % (Auto) 28.6 (19.3-51.7) % Coos % (Auto) 8.0 (4.7-12.5) % Eos % (Auto) 1.5 (0.7-5.8) Baso % (Auto) 0.2 (0.1-1.2) % Neut # (Auto) 7.48 H (1.56-6.13) K/mm3 Lymph # (Auto) 3.52 (1.18-3.74) K/mm3 Coos # (Auto) 0.98 H (0.24-0.36) K/mm3 Eos # (Auto) 0.18 (0.04-0.36) K/mm3 Baso # (Auto) 0.02 (0.01-0.08) K/mm3 Manual Slide Review Normal smear Blood Type Cancelled Gel Antibody Screen Cancelled Screen 1 ros/5 flds - neg RhIG Candidate? Yes Rhogam Indicated Cancelled Med Orders - Current: Current Medications Acetaminophen (Tylenol) 650 mg PO Q4H PRN PRN Reason: mild pain or fever Benzocaine/Menthol (Dermoplast Pain Relief [place]) 0 gm TOP ASDIRECTED PRN PRN Reason: Perineal Comfort Measure Last Admin: 08/11/17 14:50 Dose: 1 canister Docusate Sodium (Colace) 100 mg PO BID PRN PRN Reason: Constipation Emollient Ointment (Lansinoh Hpa) 0 gm TOP ASDIRECTED PRN PRN Reason: Sore Nipples Oxytocin 20 unit/ Lactated (Ringer's) 1,002 mls @ 500 mls/hr IV ASDIRECTED KT Ibuprofen (Motrin) 600 mg PO Q4H PRN PRN Reason: Mild pain or fever Last Admin: 08/11/17 22:16 Dose: 600 mg Witch Kely (Tucks) 1 pad TOP ASDIRECTED PRN PRN Reason: Hemorrhoid pain Last Admin: 08/11/17 14:50 Dose: 1 tub Discontinued Medications Diphenhydramine HCl (Benadryl) 25 mg IVPUSH Q6H PRN PRN Reason: Pruritis Ephedrine Sulfate (Ephedrine Sulfate) 5 mg IVPUSH ASDIRECTED PRN PRN Reason: Hypotension Fentanyl (Sublimaze) 100 mcg EPIDUR Q3H PRN PRN Reason: Pain Last Admin: 08/11/17 04:41 Dose: 100 mcg Fentanyl/Bupivacaine HCl (Fentanyl/Bupivacaine/Ns 2 Mcg-0.125% 100 Ml) 100 ml EPIDUR ASDIRECTED KT Last Admin: 08/11/17 04:42 Dose: 100 ml Ampicillin Sodium 2 gm/ Sodium (Chloride) 100 mls @ 200 mls/hr IV ONETIME ONE Stop: 08/11/17 02:52 Last Admin: 08/11/17 02:37 Dose: 200 mls/hr Lactated Ringer's (Ringers, Lactated) 1,000 mls @ 100 mls/hr IV ASDIRECTED KT Ampicillin Sodium 1 gm/ Sodium (Chloride) 100 mls @ 200 mls/hr IV Q4H KT Last Admin: 08/11/17 14:52 Dose: Not Given Lactated Ringer's (Ringers, Lactated) 1,000 mls @ 100 mls/hr IV ASDIRECTED TK Last Admin: 08/11/17 05:10 Dose: 100 mls/hr Oxytocin 20 unit/ Lactated (Ringer's) 1,002 mls @ 6.01 mls/hr IV TITRATE KT; 2 MUNITS/MIN PRN Reason: Protocol Lidocaine HCl (Xylocaine 1%) Confirm Administered Dose 50 ml .ROUTE .STK-MED ONE Stop: 08/11/17 11:07 Last Admin: 08/11/17 11:10 Dose: 50 ml Ondansetron HCl (Zofran) 4 mg IVPUSH ONETIME PRN PRN Reason: Nausea/Vomiting Pneumococcal Polyvalent Vaccine (Pneumovax 23) 0.5 ml IM .ONCE ONE Stop: 08/11/17 02:29 Last Admin: 08/11/17 14:52 Dose: Not Given Pneumococcal Polyvalent Vaccine (Pneumovax 23) 0.5 ml IM .ONCE ONE Stop: 08/11/17 14:54 Sodium Chloride (Saline Flush) 10 ml FLUSH ASDIRECTED PRN PRN Reason: Keep Vein Open Sodium Chloride (Saline Flush) 10 ml FLUSH ASDIRECTED PRN PRN Reason: Keep Vein Open *Q Meaningful Use (DIS) - VTE *Q VTE Criteria *Q: - Stroke *Q Stroke Criteria *Q: - AMI *Q AMI Criteria *Q:
== END 2017-08-12 12:20 | disposition home or self-care (01) | DRG 775 ==
LOC: JD.OBCHECK 00:02 → JD.OB 00:36 → JD.OBCHECK 02:23 → JD.OB 02:37 → JD.MS 11:00 → OBSVTOIN 11:00 → JD.OB 14:25
PROVIDERS: ADMIT Obstetrics & Gynecology; ATTEND Obstetrics & Gynecology
PROC: 10E0XZZ Delivery of Products of Conception, External Approach (ICD-10-PCS; principal; 2017-08-11)
PROC: 0W8NXZZ Division of Female Perineum, External Approach (ICD-10-PCS; 2017-08-11)
PROC: 00HU33Z Insertion of Infusion Device into Spinal Canal, Percutaneous Approach (ICD-10-PCS; 2017-08-11)
PROC: 3E0R3BZ Introduction of Anesthetic Agent into Spinal Canal, Percutaneous Approach (ICD-10-PCS; 2017-08-11)
DX: O42.02 Full-term premature rupture of membranes, onset of labor within 24 hours of rupture (principal); Z37.0 Single live birth; Z3A.38 38 weeks gestation of pregnancy; O99.824 Streptococcus B carrier state complicating childbirth; O70.9 Perineal laceration during delivery, unspecified
CPT/HCPCS: 36415; 51702; 59300; 59409; 84112; 85025; 85461; 86850; 86900; 86901; A9270-GY; J0290; J2790; J3010; J7030; J7120